=== PATIENT | female | born 1940 | race Caucasian/White ===

== ENCOUNTER 2019-01-19 21:58 | Emergency (ER) | payer BC, MEDICARE ==
[2019-01-20] MEDS ORDERED: HYDRALAZINE HCL INJ/PF 20 MG/1 ML SDV IV ONE ×2 (00:37→03:09)
[2019-01-20] MEDS ORDERED: ASPIRIN 81 MG TABLET, CHEWABLE PO ONE (00:37)
--- NOTE | 2019-01-20 01:29 | RADIOLOGY REPORT (SQ) ---
EXAM DESCRIPTION: XR CHEST 1 VIEW COMPLETED DATE/TME: 01/20/2019 00:37 CLINICAL HISTORY: 78 years Female SOB COMPARISON: None. FINDINGS: The cardiomediastinal silhouette appears unremarkable. No consolidating infiltrates or pleural effusions. No pneumothorax. Atelectasis in the left base. Elevation of the right hemidiaphragm. Right basilar atelectasis. IMPRESSION: Elevation the right hemidiaphragm and small amount of bilateral basilar atelectasis
[2019-01-20 01:39] LABS: ABSOLUTE BASOPHILS # (AUTO) 0.1 10^3/uL (0.0-0.2); ABSOLUTE EOSINOPHILS # (AUTO) 0.6 10^3/uL (0.0-0.6); ABSOLUTE LYMPHOCYTES (AUTO) 2.3 10^3/uL (0.5-4.7); ABSOLUTE MONOCYTES (AUTO) 1.5 10^3/uL (0.1-1.4); ABSOLUTE NEUT (AUTO) 9.9 10^3/uL (1.7-8.2); EOSINOPHILS % (AUTO) 4.2 % (0-6); HEMATOCRIT 39.8 % (36.0-47.0); HEMOGLOBIN 13.2 g/dL (12.0-15.5); MEAN CORPUSCULAR HGB CONC 33.3 g/dL (32.0-36.0); MEAN CORPUSCULAR VOLUME 84 fl (80-97); MONOCYTES % (AUTO) 10.5 % (3-13); PLATELET COUNT 355 10^3/uL (150-450); RED BLOOD COUNT 4.73 10^6/uL (3.72-5.28); RED CELL DISTRIBUTION WIDTH 15.9 % (11.5-14.0); SEGMENTED NEUTROPHILS % (AUTO) 68.3 % (42-78); TOTAL CELLS COUNTED % (AUTO) 100 %; WHITE BLOOD COUNT 14.5 10^3/uL (4.0-10.5)
[2019-01-20 02:09] LABS: ALANINE AMINOTRANSFERASE 27 U/L (9-52); ALBUMIN 4.3 g/dL (3.5-5.0); ALKALINE PHOSPHATASE 138 U/L (38-126); ANION GAP 10 (5-19); ASPARTATE AMINO TRANSFERASE 29 U/L (14-36); BILIRUBIN,DIRECT 0.4 mg/dL (0.0-0.4); BILIRUBIN,TOTAL 0.6 mg/dL (0.2-1.3); BLOOD UREA NITROGEN 37 mg/dL (7-20); CALCIUM 10.5 mg/dL (8.4-10.2); CARBON DIOXIDE 23 mmol/L (22-30); CHLORIDE 108 mmol/L (98-107); CREATINE KINASE 115 U/L (30-135); GLUCOSE 137 mg/dL (75-110); POTASSIUM 4.9 mmol/L (3.6-5.0); SODIUM 140.8 mmol/L (137-145); TOTAL PROTEIN 7.4 g/dL (6.3-8.2)
[2019-01-20 02:21] LABS: CREATINE KINASE MB 2.89 ng/mL (<4.55); TROPONIN I 0.019 ng/mL
[2019-01-20] MEDS ORDERED: ONDANSETRON HCL INJ/PF 4 MG/2 ML SDV IV ONE (03:41)
--- NOTE | 2019-01-20 04:21 | ER Document Report ---
Entered by DEMETRIUS TOMAS SCRIBE 01/20/19 0036 Acting as scribe for:BOOGIE CAO DO ED Blood Pressure Problem - General Information source: Patient TRAVEL OUTSIDE OF THE [place] IN LAST 30 DAYS: No <BOOGIE CAO - Last Filed: 01/20/19 04:21> <LARRY MEJIA - Last Filed: 01/20/19 07:10> - General Chief Complaint: High Blood Pressure Stated Complaint: BLOOD PRESSURE PROBLEM Time Seen by Provider: 01/20/19 00:26 Primary Care Provider: SEVERINO JOINER MD [NO LOCAL MD] - Follow up tomorrow LIZANDRO LARKIN MD [Primary Care Provider] - Follow up in 3-5 days Notes: 78-year-old female presents to the emergency department today with concerns of elevated blood pressures at home. Son at bedside reports that the patient had x2 renal artery stents placed approximately x3 weeks ago. Son reports after those stents were placed the patient's hypertensive medications were changed. Patient is currently taking triamteren 37.5mg w/ HCTZ 25mg, 10 mg amlodipine, 50 mg metoprolol, and 25 mg hydralazine for her hypertension. Patient reports that after taking her blood pressure and finding out that it was elevated she began having several other symptoms including the sensation that her throat was becoming restricted, shortness of breath, abdominal pain, and vomiting. Patient states that her shortness of breath is exacerbated when lying supine and relieved when standing up walking around. Patient denies any chest pain or history of NE/CVA. (DEMETRIUS TOMAS) 78-year-old female presents to the emergency department today with concerns of elevated blood pressures at home. Son at bedside reports that the patient had x2 renal artery stents placed approximately x3 weeks ago. Son reports after those stents were placed the patient's hypertensive medications were changed. Patient is currently taking triamteren 37.5mg w/ HCTZ 25mg, 10 mg amlodipine, 50 mg metoprolol, and 25 mg hydralazine for her hypertension. Patient reports that after taking her blood pressure and finding out that it was elevated she began having several other symptoms including the sensation that her throat was becoming restricted, shortness of breath, abdominal pain, and vomiting. Patient states that her shortness of breath is exacerbated when lying supine and relieved when standing up walking around. Patient denies any chest pain or history of NE/CVA. (BOOGIE CAO) - Related Data Allergies/Adverse Reactions: codeine [Codeine] Allergy (Verified 08/06/12 12:18) Nausea Past Medical History - General Information source: Patient - Social History Smoking Status: Never Smoker Cigarette use (# per day): No Frequency of alcohol use: None Drug Abuse: None Lives with: Family Family History: Reviewed & Not Pertinent - Past Medical History Cardiac Medical History: Reports: Hx Hypertension Past Surgical History: Reports: Hx Hysterectomy <BOOGIE CAO - Last Filed: 01/20/19 04:21> Review of Systems - Review of Systems Constitutional: No symptoms reported EENT: See HPI, Other - sensation that throat was becoming restricted Cardiovascular: See HPI, Other - Elevated blood pressure. denies: Chest pain Respiratory: See HPI, Short of breath Gastrointestinal: See HPI, Abdominal pain, Vomiting Genitourinary: No symptoms reported Female Genitourinary: No symptoms reported Musculoskeletal: No symptoms reported Skin: No symptoms reported Hematologic/Lymphatic: No symptoms reported Neurological/Psychological: No symptoms reported -: Yes All other systems reviewed and negative <BOOGIE CAO - Last Filed: 01/20/19 04:21> Physical Exam - Vital signs Interpretation: Hypertensive <BOOGIE CAO - Last Filed: 01/20/19 04:21> - Vital signs Vitals: Temp Pulse Resp BP Pulse Ox 98.7 F 88 16 218/66 H 97 01/20/19 00:01 01/20/19 00:01 01/20/19 00:01 01/20/19 00:01 01/20/19 00:01 - Notes Notes: PHYSICAL EXAM GENERAL: Alert, interacts well. No acute distress. HEAD: Normocephalic, atraumatic. EYES: Pupils equal, round, and reactive to light. Extraocular movements intact. ENT: Oral mucosa moist, tongue midline. NECK: Full range of motion. Supple. Trachea midline. LUNGS: Clear to auscultation bilaterally, no wheezes, rales, or rhonchi. No respiratory distress. HEART: Regular rate and rhythm. No murmurs, gallops, or rubs. ABDOMEN: Soft, non-tender. Non-distended. Bowel sounds present in all 4 quadrants. No guarding, rigidity, or rebound. EXTREMITIES: Moves all 4 extremities spontaneously. No edema, radial and dorsalis pedis pulses 2/4 bilaterally. No cyanosis. NEUROLOGICAL: Alert and oriented x3. Normal speech. PSYCH: Normal affect, normal mood. SKIN: Warm, dry, normal turgor. No rashes or lesions noted. (DEMETRIUS TOMAS) PHYSICAL EXAM GENERAL: Alert, interacts well. No acute distress. HEAD: Normocephalic, atraumatic. EYES: Pupils equal, round, and reactive to light. Extraocular movements intact. ENT: Oral mucosa moist, tongue midline. NECK: Full range of motion. Supple. Trachea midline. LUNGS: Clear to auscultation bilaterally, no wheezes, rales, or rhonchi. No respiratory distress. HEART: Regular rate and rhythm. No murmurs, gallops, or rubs. ABDOMEN: Soft, non-tender. Non-distended. Bowel sounds present in all 4 quadrants. No guarding, rigidity, or rebound. EXTREMITIES: Moves all 4 extremities spontaneously. No edema, radial and dorsalis pedis pulses 2/4 bilaterally. No cyanosis. NEUROLOGICAL: Alert and oriented x3. Normal speech. PSYCH: Normal affect, normal mood. SKIN: Warm, dry, normal turgor. No rashes or lesions noted. (BOOGIE CAO) Course - Laboratory Result Diagrams: 01/20/19 01:30 01/20/19 01:30 <BOOGIE CAO - Last Filed: 01/20/19 04:21> - Laboratory Result Diagrams: 01/20/19 01:30 01/20/19 01:30 <LARRY MEJIA - Last Filed: 01/20/19 07:10> - Re-evaluation Re-evalutation: 01/20/19 04:12 CBC shows leukocytosis of 14.5, CMP shows renal failure with a BUN of 37 and creatinine 1.45, I do not have any old laboratory studies to compare this to how ever patient is known to have renal failure. Troponin is negative at 0.019. Chest x-ray shows elevated right hemidiaphragm but no pleural effusion or evidence of pneumonia. Patient had complained of some abdominal pain however her abdomen is completely nontender to palpation. She has developed some vomiting since arriving, given some Zofran. I have added a lipase on to be checked. Repeat troponin will be performed at approximately 430. Dr. Larry Mejia has accepted signout on this patient, so long as the repeat troponin is lower or not significantly changed she will be discharged home and asked to follow-up with her primary care physician as an outpatient. Son at bedside asks whether or not her nausea and newly reported rhinorrhea could be caused by the flu. I stated that it could be so they asked if we could please check a flu swab. This has been ordered as well. 01/20/19 04:15 Patient is aware that she will need to continue to follow-up with her primary care physician and her wanigan clerk for further adjustment of her antihypertensives and that we will not likely change her antihypertensives here today. (BOOGIE CAO) 01/20/19 05:57 Patient was signed out to me, pending repeat troponin, patient does not have any chest pain, does feel generally weak, and overall not well, from what it sounds like she was having weakness, starting after her new medications, which included hydralazine and a combination of triamterene and hydrochlorothiazide, she was taken off of several other blood pressure medications. She was previously on clonidine, as well as metoprolol and amlodipine. I did go evaluate the patient, she was noted to have couplets and occasionally triplets of PVCs on the monitor, they were independent PVCs, and not nonsustained V. ta ch, she has not been feeling any palpitations associated with these, we will give her a low-dose of IV metoprolol 2.5 mg, as well as IV magnesium and attempt to suppress some of these PVCs that she is having quite frequently on the monitor, she does have an appoint with her wanigan clerk today, presuming the patient is feeling well enough, and second troponin negative, and PVCs seem to be reducing, will discharge the patient to have her follow-up with her wanigan clerk today. Patient and the patient's son were agreeable to this plan of care. 01/20/19 06:41 A call was placed to the patient's wanigan clerk, and a page was placed out to the wanigan clerk on-call for the group, Dr. Gordon, to discuss her troponin, that slightly increased, and the frequent PVCs. Patient remained not having any sudheer st pain on my exam, I feel likely that the patient can be discharged, as the slight troponin elevation, is likely secondary to the patient's severe hypertension, but did want to review this with the wanigan clerk. 01/20/19 07:06 I did not received a call back from the wanigan clerk on-call, Dr. Gordon, I went back to discuss this with the patient and the patient's son, I do want them to meet their appointment, today with her wanigan clerk, patient's monitor no longer demonstrating frequent PVCs, receiving treatment, she is not complaining of any chest pain, I do feel that the patient can be safely discharged at this point, to follow-up in the office. Patient was agreeable to this plan of care and discharged home. *Note is created using voice recognition software and may contain spelling, syn tax or grammatical errors. Larry Mejia D.O. (LARRY MEJIA) - Vital Signs Vital signs: Temp Pulse Resp BP Pulse Ox 98.7 F 88 15 162/36 H 92 01/20/19 00:01 01/20/19 00:01 01/20/19 06:02 01/20/19 06:02 01/20/19 06:02 - Laboratory Laboratory results interpreted by me: 01/20/19 01/20/19 01:30 01:30 WBC 14.5 H RDW 15.9 H Absolute Neutrophils 9.9 H Absolute Monocytes 1.5 H Chloride 108 H BUN 37 H Creatinine 1.45 H Est GFR ( Amer) 42 L Est GFR (Non-Af Amer) 35 L Glucose 137 H Calcium 10.5 H Alkaline Phosphatase 138 H - EKG Interpretation by Me Additional EKG results interpreted by me: 01/20/19 04:21 EKG shows sinus rhythm rate of 89, left axis deviation, left anterior hemiblock, LVH, T wave inversions in aVL, no ST segment elevations or depressions, there are inverted P waves in V1, V2, poor R wave progression per my interpretation. (BOOGIE CAO) Discharge <BOOGIE CAO - Last Filed: 01/20/19 04:21> <LARRY MEJIA - Last Filed: 01/20/19 07:10> - Discharge Clinical Impression: Generalized weakness Hypertension Qualifiers: Hypertension type: unspecified Qualified Code(s): I10 - Essential (primary) hypertension Condition: Stable Disposition: HOME, SELF-CARE Instructions: High Blood Pressure, Requiring Treatment ([facility]) Additional Instructions: Please follow-up with your wanigan clerk today, discussed with them that you have been having frequent PVCs while you are on the monitor, and that your blood pressure has not been well controlled after the changes made after your renal artery stenting. And that you will likely need to be back on one if not 2 other blood pressure medications. I would recommend increasing the metoprolol, if you are not still taking it, but would advise discussing this with the wanigan clerk regarding the dosing. Referrals: LIZANDRO LARKIN MD [Primary Care Provider] - Follow up in 3-5 days SEVERINO JOINER MD [NO LOCAL MD] - Follow up tomorrow I personally performed the services described in the documentation, reviewed and edited the documentation which was dictated to the scribe in my presence, and it accurately records my words and actions.
[2019-01-20 04:50] LABS: A TYPE INFLUENZA AG NEGATIVE (NEGATIVE); B INFLUENZA AG NEGATIVE (NEGATIVE)
[2019-01-20] MEDS ORDERED: MAGNESIUM SULFATE/D5W 1 GM/100 ML RTUPB IV ONE (05:50)
[2019-01-20] MEDS ORDERED: METOPROLOL TARTRATE PF/INJ 5 MG/5 ML SDV IV ONE (05:50)
--- NOTE | 2019-01-20 07:17 | EKG REPORT ---
SEVERITY:- ABNORMAL ECG - SINUS RHYTHM LEFT ATRIAL ABNORMALITY LEFT AXIS DEVIATION LVH WITH SECONDARY REPOLARIZATION ABNORMALITY CONSIDER ANTERIOR INFARCT : Confirmed by: Kenny Peña MD 20-Jan-2019 07:16:49
[2019-01-20 08:07] VITALS: BP 174/59
== END 2019-01-20 08:07 | disposition home or self-care (01) ==
LOC: ER 21:58
DX: R53.1 Weakness (principal); I10 Essential (primary) hypertension
CPT/HCPCS: 93005; 96376; 99283; 96374; 96375; 36415; 82553; 82550; 83690; 85025; 80053; 84484; 87804; 71045; 93010; A9270; J0360; J3490; J3475; J2405

== ENCOUNTER 2020-10-11 07:12 | Day surgery (SDC) | payer MEDICARE ==
[~2020-10-11 07:12] MED LIST: BESIFLOXACIN HCL 0.6% OPH SUSP 5 ML BOTTLE OS PRN; CYCLOPENTOLATE 0.2%/PHENYLEPHRINE 1% OPH SOLN 2 ML OS PRN; DORZOLAMIDE HCL 2%/TIMOLOL MALEAT 0.5% OPH SOLN 10 ML OS PRN; KETOROLAC TROMETHAMINE 0.45% 4 DROP/0.4 ML DROPERETTE OS PRN; MIDAZOLAM 2 MG/2 ML INJ ONE; PREDNISOLONE ACETATE 1% OPH SUSP 5 ML OS PRN; TETRACAINE HCL 0.5% OPH SOLN 4 ML OS PRN; TROPICAMIDE 1% OPH SOLN 15 ML OS PRN
[2020-10-11] MEDS ORDERED: MOXIFLOXACIN 1 MG/ML-BSS OPH SOLN 1 ML VIAL ONE (07:27)
[2020-10-11] MEDS ORDERED: CHONDR SU A NA/HYALUR INTRAOC KIT (SURGICARE) ONE (07:27)
[2020-10-11] MEDS ORDERED: EPINEPHRINE INJ/PF 1 MG/1 ML AMPULE ONE (07:27)
[2020-10-11] MEDS ORDERED: LIDOCAINE 1%/PHENYLEPHRINE 1.5% 1 ML VIAL ONE (07:27)
--- NOTE | 2020-10-11 18:11 | EKG REPORT ---
SEVERITY:- ABNORMAL ECG - SINUS RHYTHM SUPRAVENTRICULAR BIGEMINY LEFT AXIS DEVIATION LVH WITH SECONDARY REPOLARIZATION ABNORMALITY : Confirmed by: Yamileth Smallwood MD 11-Oct-2020 18:10:38
== END 2020-10-11 08:40 | disposition home or self-care (01) ==
LOC: SC 07:12
PROVIDERS: ATTEND Ophthalmology
DX: Z53.09 Procedure and treatment not carried out because of other contraindication (principal)
CPT/HCPCS: 93005; 93010; A9270; J3490; J0171; J2250

== ENCOUNTER 2020-10-27 06:34 | Day surgery (SDC) | payer MEDICARE ==
[~2020-10-27 06:34] MED LIST changes: -BESIFLOXACIN HCL 0.6% OPH SUSP 5 ML BOTTLE OS PRN; -CYCLOPENTOLATE 0.2%/PHENYLEPHRINE 1% OPH SOLN 2 ML OS PRN; -MIDAZOLAM 2 MG/2 ML INJ ONE; -TETRACAINE HCL 0.5% OPH SOLN 4 ML OS PRN; -TROPICAMIDE 1% OPH SOLN 15 ML OS PRN
[2020-10-27] MEDS ORDERED: MOXIFLOXACIN 1 MG/ML-BSS OPH SOLN 1 ML VIAL ONE (06:54)
[2020-10-27] MEDS ORDERED: EPINEPHRINE INJ/PF 1 MG/1 ML AMPULE ONE (06:54)
[2020-10-27] MEDS ORDERED: LIDOCAINE 1%/PHENYLEPHRINE 1.5% 1 ML VIAL ONE (06:54)
[2020-10-27] MEDS ORDERED: CHONDR SU A NA/HYALUR INTRAOC KIT (SURGICARE) ONE (06:55)
[2020-10-27] MEDS: TETRACAINE HCL 0.5% OPH SOLN 4 ML OS PRN ×3 (06:58→07:30)
[2020-10-27] MEDS: CYCLOPENTOLATE 0.2%/PHENYLEPHRINE 1% OPH SOLN 2 ML OS PRN ×3 (06:58→07:14)
[2020-10-27] MEDS: BESIFLOXACIN HCL 0.6% OPH SUSP 5 ML BOTTLE OS PRN ×3 (06:59→07:48)
[2020-10-27] MEDS: TROPICAMIDE 1% OPH SOLN 15 ML OS PRN ×3 (06:59→07:14)
[2020-10-27] MEDS ORDERED: MIDAZOLAM 2 MG/2 ML INJ ONE (07:15)
--- NOTE | 2020-10-27 15:38 | Operative Report ---
Operative Report-[facility] Operative Report: DATE OF SURGERY: October 27, 2020 PREOPERATIVE DIAGNOSIS: NUCLEAR CATARACT, LEFT EYE. POSTOPERATIVE DIAGNOSIS: NUCLEAR CATARACT, LEFT EYE. PROCEDURE PERFORMED: PHACOEMULSIFICATION WITH POSTERIOR CHAMBER INTRAOCULAR LENS IMPLANT, LEFT EYE. SURGEON: Gordon Hedrick DO MEDICATIONS AND ANESTHESIA: Versed: IV Versed Tetracaine drops: 1 to 2 drops given as needed COMPLICATION: None INDICATIONS FOR SURGERY: Medical necessity: Best corrected visual acuity worse than 20/40 secondary to cataracts with impairment of ability to carry out needs or desired activities, blurred vision, visual distortion, reduced contrast sensitivity and/or glare with association functional impairment and supporting documentation/testing, and cataracts causing symptomatic impairment of visual functions not corrected with tolerable changes in glasses or contact lenses interfering with activities of daily life. PROCEDURE: Consent: The risks, benefits and alternatives of this procedures was discussed with the patient. The patient read and signed the consent forms, was identified and was seated in the exam chair. IOL: MX 60 E 23.0 IOL Diopters: Phacoemulsification with posterior chamber intraocular lens implant: The face was prepped with 5% povidone iodine solution, and a few drops of 5% povidone iodine solution was instilled into the inferior fornix. A non-fenestrated drape was placed over the eye and the lids were parted with the speculum. A paracentesis was made with a 15 degree blade, and 1% lidocaine MPF followed by viscoelastic was injected into the anterior chamber. A 2.4 mm metal micro- keratome was used to create a temporal clear corneal incision. A circular anterior capsulorrhexis was created, followed by hydro-dissection and hydro- delineation. The phacoemulsification hand piece was inserted and the nucleus was removed with the Phaco chop technique. The irrigation-aspiration hand piece was used to remove the residual cortex, and vacuum the posterior capsule. The capsular bag was inflated and viscoelastic and the above-mentioned IOL was injected into the eye with care to insert both leaning and trailing haptics in the capsular bag. The irrigation/aspiration hand piece was reinserted to remove residual viscoelastic from the capsular bag and anterior chamber. The corneal incision was hydrated, and anterior chamber was inflated with sterile BSS via the paracentesis site, and found to be watertight. Postop medication:1 drop of prednisolone into operative by followed by 1 drop of Cosopt into operative eye followed by 1 drop of Besivance intraoperative by Other:
== END 2020-10-27 08:26 | disposition home or self-care (01) ==
LOC: SC 06:34
PROVIDERS: ATTEND Ophthalmology
DX: H25.12 Age-related nuclear cataract, left eye (principal); E78.00 Pure hypercholesterolemia, unspecified; E03.9 Hypothyroidism, unspecified; R73.03 Prediabetes; Z95.0 Presence of cardiac pacemaker; I11.0 Hypertensive heart disease with heart failure; I50.9 Heart failure, unspecified
CPT/HCPCS: 66984; 82962; J2250; J3490 ×3; A9270; J0171; V2632